=== PATIENT | female | born 1995 | race Caucasian/White ===

== ENCOUNTER 2017-04-07 22:04 | Emergency (ER) | payer OTHER ==
[~2017-04-07] VITALS: Ht 152.4 cm; Wt 63.0 kg
[~2017-04-07 22:04] MED LIST: AMOXICILLIN500 M1; LAMICTAL25 MG
[2017-04-07] MEDS ORDERED: FIORICET 50-301 EACH PO (22:59)
[2017-04-07] MEDS ORDERED: MOTRIN800 MG PO (22:59)
[2017-04-07] MEDS ORDERED: VALIUM2 MG PO (22:59)
[2017-04-07] MEDS ORDERED: ZOFRAN ODT4 MG PO (22:59)
[2017-04-07 23:50] VITALS: BP 112/65
== END 2017-04-07 23:50 | disposition home or self-care (01) ==
LOC: EME 22:04
DX: S06.0X0A Concussion without loss of consciousness, initial encounter (principal); S16.1XXA Strain of muscle, fascia and tendon at neck level, initial encounter; V49.50XA Passenger injured in collision with unspecified motor vehicles in traffic accident, initial encounter
CPT/HCPCS: 99281; 99284

== ENCOUNTER 2017-06-06 16:48 | Emergency (ER) | payer OTHER ==
[~2017-06-06] VITALS: Ht 157.5 cm; Wt 64.6 kg
[~2017-06-06 16:48] MED LIST changes: +FIORICET 50-301 EACH PO; +MOTRIN800 MG PO; +VALIUM2 MG PO; +ZOFRAN ODT4 MG PO
[2017-06-06] MEDS ORDERED: TRAMADOL HCL50 MG PO (18:20)
[2017-06-06] MEDS ORDERED: NAPROSYN500 MG PO (18:20)
[2017-06-06] MEDS ORDERED: FLEXERIL10 MG PO (18:20)
[2017-06-06 18:25] VITALS: BP 144/77
== END 2017-06-06 18:26 | disposition home or self-care (01) ==
LOC: EME 16:48
DX: G89.29 Other chronic pain (principal); M54.2 Cervicalgia; M54.6 Pain in thoracic spine; F17.200 Nicotine dependence, unspecified, uncomplicated
CPT/HCPCS: 99281; 99282

== ENCOUNTER 2017-07-26 21:10 | Emergency (ER) | payer BC ==
[~2017-07-26] VITALS: Ht 162.6 cm; Wt 66.0 kg
[~2017-07-26 21:10] MED LIST changes: +FLEXERIL10 MG PO; +NAPROSYN500 MG PO; +TRAMADOL HCL50 MG PO
[2017-07-26 22:10] LABS: ADD MIUA? NO; BILIRUBIN NEGATIVE; BLOOD NEGATIVE; COLOR COLORLESS ((YELLOW)); GLUCOSE (STRIP) NEGATIVE; KETONES NEGATIVE; LEUKOCYTES NEGATIVE; NITRITE NEGATIVE; PROTEIN (STRIP) NEGATIVE; SPECIFIC GRAVITY 1.005 (1.000-1.030); UROBILINOGEN 0.2 MG/DL (0.2-1.0)
[2017-07-26 22:15] LABS: UCUL ADDED? NO
[2017-07-26 22:16] LABS: HEMATOCRIT 36.5 % (36.0-46.0); MCH 31.4 PG (29.0-34.0); MCHC 35.1 G/DL (30.0-36.0); MCV 89.7 FL (83-99); MEAN PLAT.VOLUME 10.8 uM^3 (9.5-12.4); PLATELET COUNT 178 K/uL (156-360); RBC DIS.WIDTH-CV 11.2 % (11.8-14.6); RBC DIS.WIDTH-SD 37.1 % (39-53); RED BLOOD COUNT 4.07 M/uL (3.80-5.20); WHITE BLOOD COUNT 5.7 K/uL (4.1-10.2)
[2017-07-26 22:31] LABS: CHLORIDE 103 mEq/L (99-109); POTASSIUM 3.5 mEq/L (3.7-5.4); SODIUM 140 mEq/L (136-147)
[2017-07-26 22:34] LABS: GLUCOSE 112 mg/dL (70-99)
[2017-07-26 22:35] LABS: ANION GAP 12 MEQ/L (2-14); TOTAL BILIRUBIN 0.2 mg/dL (0.0-1.0)
[2017-07-26 22:37] LABS: ALKALINE PHOSPHATASE 50 IU/L (3-129); GFR ESTIMATE (CALCULATED) > 59 mL/min/
[2017-07-26 22:38] LABS: UREA NITROGEN (BUN) 10 mg/dL (9-23)
[2017-07-26 22:47] LABS: QUANTITATIVE HCG < 4.0 MIU/ML
[2017-07-26 23:24] LABS: LIPASE 24 U/L (1.0-51.0)
[2017-07-27 01:06] LABS: INTERNAL CONTROL VALID? YES; MONOSPOT (MONONUCLEOSIS SEROL) NEGATIVE
[2017-07-27] MEDS ORDERED: NORCO 5/3251 TABLET PO (01:13)
[2017-07-27] MEDS ORDERED: ZOFRAN4 MG PO (01:13)
[2017-07-27 02:15] VITALS: BP 120/69
== END 2017-07-27 02:34 | disposition home or self-care (01) ==
LOC: EME 21:10
DX: K82.8 Other specified diseases of gallbladder (principal); R11.0 Nausea; F31.9 Bipolar disorder, unspecified; F32.9 Major depressive disorder, single episode, unspecified; F17.200 Nicotine dependence, unspecified, uncomplicated
CPT/HCPCS: 76705; 80053; 81003; 83690; 84702; 85027; 86308; 99281; 99284

== ENCOUNTER 2017-08-08 23:53 | Emergency (ER) | payer BC ==
[~2017-08-08] VITALS: Ht 162.6 cm; Wt 66.0 kg
[~2017-08-08 23:53] MED LIST changes: +NORCO 5/3251 TABLET PO; +ZOFRAN4 MG PO
[2017-08-09 00:18] LABS: ADD MIUA? YES; BILIRUBIN NEGATIVE; BLOOD NEGATIVE; COLOR YELLOW ((YELLOW)); GLUCOSE (STRIP) NEGATIVE; KETONES NEGATIVE; LEUKOCYTES TRACE; NITRITE NEGATIVE; PROTEIN (STRIP) NEGATIVE; SPECIFIC GRAVITY 1.026 (1.000-1.030); UROBILINOGEN 0.2 MG/DL (0.2-1.0)
[2017-08-09 00:32] LABS: HEMATOCRIT 38.4 % (36.0-46.0); MCH 31.3 PG (29.0-34.0); MCHC 35.2 G/DL (30.0-36.0); MCV 88.9 FL (83-99); MEAN PLAT.VOLUME 10.8 uM^3 (9.5-12.4); PLATELET COUNT 182 K/uL (156-360); RBC DIS.WIDTH-CV 11.1 % (11.8-14.6); RED BLOOD COUNT 4.32 M/uL (3.80-5.20); WHITE BLOOD COUNT 8.8 K/uL (4.1-10.2)
[2017-08-09 00:34] LABS: BACTERIA 1+ /HPF; CASTS NONE SEEN /LPF; CRYSTALS NONE SEEN; EPITHELIAL CELLS 1+ /HPF; MUCUS RARE /LPF; RED BLOOD CELLS 0-5 /HPF (0-5); UCUL ADDED? NO; WHITE BLOOD CELLS 0-5 /HPF (0-5)
[2017-08-09 00:43] LABS: CHLORIDE 103 mEq/L (99-109); POTASSIUM 3.3 mEq/L (3.7-5.4); SODIUM 136 mEq/L (136-147)
[2017-08-09 00:45] LABS: GLUCOSE 99 mg/dL (70-99)
[2017-08-09 00:46] LABS: ANION GAP 10 MEQ/L (2-14)
[2017-08-09 00:47] LABS: TOTAL BILIRUBIN 0.2 mg/dL (0.0-1.0)
[2017-08-09 00:49] LABS: ALKALINE PHOSPHATASE 56 IU/L (3-129); GFR ESTIMATE (CALCULATED) > 59 mL/min/
[2017-08-09 00:50] LABS: UREA NITROGEN (BUN) 13 mg/dL (9-23)
[2017-08-09 01:01] LABS: QUANTITATIVE HCG < 4.0 MIU/ML
[2017-08-09] MEDS ORDERED: BENTYL20 MG PO (01:59)
[2017-08-09] MEDS ORDERED: ZOFRAN ODT4 MG PO (01:59)
[2017-08-09 02:15] VITALS: BP 136/82
== END 2017-08-09 02:18 | disposition home or self-care (01) ==
LOC: EME 23:53
DX: K52.9 Noninfective gastroenteritis and colitis, unspecified (principal); F32.9 Major depressive disorder, single episode, unspecified; F17.200 Nicotine dependence, unspecified, uncomplicated
CPT/HCPCS: 74176; 80053; 81003; 84702; 85027; 99281; 99283

== ENCOUNTER → 2017-08-10 | Outpatient (CLI) | payer BC ==
[~2017-08-10] MED LIST changes: +BENTYL20 MG PO
== END | disposition home or self-care (01) ==
LOC: NUC 10:00
DX: R10.11 Right upper quadrant pain (principal); R11.0 Nausea
CPT/HCPCS: 78226; A9537